=== PATIENT | female | born 1935 | race Two or more races ===

== ENCOUNTER 2019-01-23 15:48 | Emergency (ER) | payer MEDICARE, OTHER ==
[~2019-01-23] VITALS: Ht 149.9 cm; Wt 61.7 kg
--- NOTE | 2019-01-23 16:05 | NUR ---
BIB SON, FROM HOME, C/O HYPERTENSION AND HEADACHE x 4 DAYS. PATIENT A/OX4, DENIES CHEST PAIN OR DISCOMFORT. BREATHING EVEN AND UNLABORED. NO SOB NOTED, PATIENT PLACED ON THE MONITOR.
[2019-01-23] MEDS ORDERED: ENALAPRILAT INJ (1.25 MG/ML) 1.25 MG/ML VIAL IV ONE (16:09)
[2019-01-23 16:19] LABS: BASOPHILS # (AUTO) 0.1 /CMM (0.0-0.2); BASOPHILS % (AUTO) 0.8 % (0.0-2.0); EOSINOPHILS % (AUTO) 3.3 % (0.0-6.0); HEMATOCRIT 41 % (33-45); HEMOGLOBIN 13.7 g/dL (11.5-14.8); LYMPHOCYTES # (AUTO) 2.1 /CMM (0.8-4.8); LYMPHOCYTES % (AUTO) 24.5 % (20.0-44.0); MEAN CORPUSCULAR HGB CONC 34 g/dl (31.0-36.0); MEAN CORPUSCULAR VOLUME 88 fL (82-100); MONOCYTES # (AUTO) 0.6 /CMM (0.1-1.30); MONOCYTES % (AUTO) 6.9 % (2.0-12.0); NEUTROPHILS # (AUTO) 5.5 /CMM (1.8-8.9); NEUTROPHILS % (AUTO) 64.5 % (43.0-81.0); PLATELET COUNT (AUTO) 316 /CMM (150-450); RED BLOOD CELL COUNT(AUTO) 4.64 MIL/uL (4.0-5.2); WHITE BLOOD COUNT (AUTO) 8.5 K/uL (4.3-11.0)
[2019-01-23] MEDS ORDERED: ASPI-605 PO (16:27)
[2019-01-23] MEDS ORDERED: LINA5TAB PO (16:27)
[2019-01-23] MEDS ORDERED: HYDR25TA4 PO (16:27)
[2019-01-23] MEDS ORDERED: EMPA25TA PO (16:27)
[2019-01-23] MEDS ORDERED: METO25TA6 PO (16:27)
[2019-01-23] MEDS ORDERED: LOSA50TA39 PO (16:27)
[2019-01-23] MEDS ORDERED: METF-442 PO (16:27)
[2019-01-23] MEDS ORDERED: GLIM4TAB2 PO (16:27)
[2019-01-23] MEDS ORDERED: ERGO500014 PO (16:27)
[2019-01-23] MEDS ORDERED: ENALAPRILAT DIHYD. (2.5MG/ML) 1.25 MG/ML VIAL IV ONE (16:30)
[2019-01-23 16:42] LABS: ALANINE AMINOTRANSFERASE 23 U/L (12-78); ALKALINE PHOSPHATASE 70 U/L (46-116); ASPARTATE AMINOTRANSFERASE 14 U/L (15-37); BILIRUBIN,DIRECT 0.1 mg/dL (0.0-0.2); BILIRUBIN,TOTAL 0.4 mg/dL (0.2-1.0); CALCIUM, SERUM 9.9 mg/dL (8.5-10.1); CARBON DIOXIDE 26 mmol/L (21-32); CHLORIDE 101 mmol/L (98-107); CREATININE 0.9 mg/dL (0.6-1.3); GLUCOSE 183 mg/dL (74-106); POTASSIUM 3.9 mmol/L (3.5-5.1); SODIUM SERUM 139 mmol/L (136-145); TOTAL PROTEIN, SERUM 8.9 g/dL (6.4-8.2); UREA NITROGEN, BLOOD 22 mg/dL (7-18)
[2019-01-23 17:22] VITALS: BP 164/62
--- NOTE | 2019-01-23 17:25 | NUR ---
PIV REMOVED. Patient discharged to home in stable condition. Written and verbal after care instructions given. Patient verbalizes understanding of instruction.
== END 2019-01-23 17:22 | disposition home or self-care (01) ==
LOC: ER 15:50
DX: I10 Essential (primary) hypertension (principal); R60.1 Generalized edema; E11.9 Type 2 diabetes mellitus without complications; Z79.82 Long term (current) use of aspirin
CPT/HCPCS: 36415; 71045; 80048; 80076; 84484; 85025; 93005; 96374; 99284; J3490

== ENCOUNTER 2024-08-29 18:54 | Inpatient (IN) | payer MEDICARE, OTHER ==
[~2024-08-29] VITALS: Ht 149.9 cm; Wt 68.0 kg
[~2024-08-29 18:54] MED LIST: ASPI-605 PO; EMPA25TA PO; ERGO500014 PO; GLIM4TAB37 PO; HYDR25TA4 PO; LINA5TAB PO; LOSA50TA39 PO; METF-442 PO; METO25TA6 PO
[2024-08-29 19:51] LABS: BASOPHILS # (AUTO) 0.1 K/uL (0.0-0.2); EOSINOPHILS # (AUTO) 0.4 K/uL (0.0-0.7); HEMATOCRIT 36 % (33-45); HEMOGLOBIN 12.2 g/dL (11.5-14.8); LYMPHOCYTES # (AUTO) 1.5 K/uL (0.8-4.8); LYMPHOCYTES % (AUTO) 21.2 % (20.0-44.0); MEAN CORPUSCULAR HEMOGLOBIN 31 PG (26.0-33.0); MEAN CORPUSCULAR HGB CONC 34 g/dl (31.0-36.0); MEAN CORPUSCULAR VOLUME 93 fL (82-100); MONOCYTES # (AUTO) 0.6 K/uL (0.1-1.30); MONOCYTES % (AUTO) 8.1 % (2.0-12.0); NEUTROPHILS # (AUTO) 4.6 K/uL (1.8-8.9); NEUTROPHILS % (AUTO) 63.7 % (43.0-81.0); PLATELET COUNT (AUTO) 202 K/uL (150-450); RED CELL DISTRIBUTION WIDTH 13.7 % (11.5-15.0); WHITE BLOOD COUNT (AUTO) 7.2 K/uL (4.3-11.0)
[2024-08-29 20:40] LABS: ALANINE AMINOTRANSFERASE 17 U/L (12-78); ALBUMIN 4.2 g/dL (3.4-5.0); ALKALINE PHOSPHATASE 72 U/L (46-116); ASPARTATE AMINOTRANSFERASE 12 U/L (15-37); BILIRUBIN,TOTAL 0.3 mg/dL (0.2-1.0); CARBON DIOXIDE 28 mmol/L (21-32); CHLORIDE 100 mmol/L (98-107); CREATININE 1.3 mg/dL (0.6-1.3); GLUCOSE 157 mg/dL (74-106); NT-PRO BNP 2201 pg/mL (0-125); POTASSIUM 3.8 mmol/L (3.5-5.1); SODIUM SERUM 137 mmol/L (136-145); UREA NITROGEN, BLOOD 31 mg/dL (7-18)
[2024-08-29] MEDS ORDERED: FUROSEMIDE 20 MG/2 ML VIAL ONE (20:56)
[2024-08-29 20:57] LABS: BILIRUBIN,DIRECT 0.1 mg/dL (0.0-0.2); CALCIUM, SERUM 9.4 mg/dL (8.5-10.1)
[2024-08-29] MEDS: FUROSEMIDE 20 MG/2 ML VIAL IV ONE (21:14)
[2024-08-29] MEDS ORDERED: ERGOCALCIFEROL (VITAMIN D 2) 50,000 UNIT CAPSULE PO SCH (22:00)
[2024-08-29] MEDS ORDERED: ENOXAPARIN SODIUM 40 MG/0.4 ML DISP.SYRIN SQ SCH (22:00)
[2024-08-29] MEDS ORDERED: ONDANSETRON HCL/PF 4 MG/2 ML VIAL IVP PRN (22:00)
[2024-08-29] MEDS ORDERED: MAG HYDROX/AL HYDROX/SIMETH 30 ML UDC PO PRN (22:00)
[2024-08-29] MEDS ORDERED: METFORMIN 850 MG TABLET PO ONE (22:00)
[2024-08-30] VITALS: BP 148/51; TEMP 97.5; O2SAT 96; O2SAT 97
[2024-08-30] MEDS ORDERED: NIFE-34 PO (00:21)
[2024-08-30] MEDS ORDERED: ATOR10TA PO (00:21)
[2024-08-30] MEDS ORDERED: MECL-159 PO (00:21)
[2024-08-30] MEDS ORDERED: CARV6.252 PO (00:21)
[2024-08-30] MEDS ORDERED: PIOG30TA10 PO (00:21)
[2024-08-30] MEDS ORDERED: FERR325T30 PO (00:21)
[2024-08-30 04:00] VITALS: BP 162/57; TEMP 97.7; O2SAT 98
[2024-08-30] MEDS: ACETAMINOPHEN 325 MG TABLET PO PRN (05:24)
[2024-08-30] MEDS ORDERED: HYDROCODONE/APAP 5/325MG TABLET PO PRN (07:00)
[2024-08-30 07:13] LABS: BASOPHILS # (AUTO) 0.1 K/uL (0.0-0.2); BASOPHILS % (AUTO) 0.9 % (0.0-2.0); EOSINOPHILS # (AUTO) 0.4 K/uL (0.0-0.7); EOSINOPHILS % (AUTO) 7.3 % (0.0-6.0); HEMATOCRIT 35 % (33-45); HEMOGLOBIN 11.8 g/dL (11.5-14.8); LYMPHOCYTES # (AUTO) 1.4 K/uL (0.8-4.8); LYMPHOCYTES % (AUTO) 24.5 % (20.0-44.0); MEAN CORPUSCULAR HEMOGLOBIN 31 PG (26.0-33.0); MEAN CORPUSCULAR HGB CONC 34 g/dl (31.0-36.0); MEAN CORPUSCULAR VOLUME 93 fL (82-100); MONOCYTES # (AUTO) 0.5 K/uL (0.1-1.30); MONOCYTES % (AUTO) 9.2 % (2.0-12.0); NEUTROPHILS # (AUTO) 3.4 K/uL (1.8-8.9); NEUTROPHILS % (AUTO) 58.1 % (43.0-81.0); PLATELET COUNT (AUTO) 198 K/uL (150-450); RED BLOOD CELL COUNT(AUTO) 3.77 MIL/uL (4.0-5.2); RED CELL DISTRIBUTION WIDTH 13.8 % (11.5-15.0); WHITE BLOOD COUNT (AUTO) 5.8 K/uL (4.3-11.0)
[2024-08-30 07:35] LABS: CALCIUM, SERUM 9.7 mg/dL (8.5-10.1); CREATININE 1.1 mg/dL (0.6-1.3); MAGNESIUM 2.1 mg/dL (1.8-2.4); PHOSPHORUS 4.6 mg/dL (2.5-4.9); POTASSIUM 3.2 mmol/L (3.5-5.1)
[2024-08-30 08:00] VITALS: BP 172/62; TEMP 98.4; O2SAT 96
[2024-08-30] MEDS: FERROUS SULFATE (325 MG) 325 MG/TAB TABLET PO SCH (08:27)
[2024-08-30] MEDS: LINAGLIPTIN 5 MG TABLET PO SCH (08:27)
[2024-08-30] MEDS: PIOGLITAZONE HCL 15 MG TABLET PO SCH (08:28)
[2024-08-30] MEDS: HYDROCHLOROTHIAZIDE 25 MG TABLET PO SCH (08:29)
[2024-08-30] MEDS: METOPROLOL TARTRATE 25 MG TABLET PO SCH (08:29)
[2024-08-30] MEDS: LOSARTAN POTASSIUM 50 MG TABLET PO SCH (08:30)
[2024-08-30] MEDS: CARVEDILOL 6.25 MG TABLET PO SCH (08:30)
[2024-08-30] MEDS: GLIMEPIRIDE 4 MG TABLET PO SCH (08:30)
[2024-08-30] MEDS: ASPIRIN EC 81 MG TABLET.DR PO SCH (08:30)
[2024-08-30] MEDS: NIFEdipine XL (30MG) 30 MG TAB PO SCH (08:30)
[2024-08-30] MEDS: FUROSEMIDE 40 MG/4 ML VIAL IV SCH (08:31)
[2024-08-30] MEDS: MECLIZINE HCL 25 MG TABLET PO SCH (08:31)
[2024-08-30] MEDS: EMPAGLIFLOZIN 25 MG TABLET PO SCH (08:31)
[2024-08-30] MEDS: ATORVASTATIN 10 MG TABLET PO SCH (08:31)
[2024-08-30] MEDS: ENOXAPARIN SODIUM 30 MG/0.3 ML DISP.SYRIN SQ SCH (08:34)
[2024-08-30] MEDS ORDERED: CYAN500T64 PO (09:51)
[2024-08-30] MEDS ORDERED: VALS1TAB8 PO (09:51)
[2024-08-30] MEDS ORDERED: METF-440 PO (09:51)
[2024-08-30] MEDS ORDERED: FURO-145 PO (09:51)
[2024-08-30] MEDS ORDERED: FURO-144 PO (10:32)
[2024-08-30] MEDS: POTASSIUM CHLORIDE 20 MEQ TAB.PRT.SR PO SCH (10:54)
[2024-08-30 12:00] VITALS: BP 167/66; TEMP 97.5; O2SAT 94
[2024-08-30 12:30] VITALS: BP 138/57
[2024-08-30 16:00] VITALS: BP 148/50; TEMP 98.1; O2SAT 96
== END 2024-08-30 16:20 | disposition home or self-care (01) | DRG 291 ==
LOC: ER 18:57 → TELE 21:53
PROVIDERS: ADMIT Nurse Practitioner Acute Care
DX: I11.0 Hypertensive heart disease with heart failure (principal); I50.33 Acute on chronic diastolic (congestive) heart failure; D68.69 Other thrombophilia; Z79.84 Long term (current) use of oral hypoglycemic drugs; E11.9 Type 2 diabetes mellitus without complications; E66.9 Obesity, unspecified; Z79.82 Long term (current) use of aspirin; Z68.30 Body mass index [BMI] 30.0-30.9, adult
CPT/HCPCS: 36415; 71045-TC; 80048-TC; 80076-TC; 83735-TC; 83880; 84100-TC; 84484-TC; 85025-TC; 93307-TC; 93970-TC; G0378; J1650; J1940; J8597